=== PATIENT | male | born 1985 | race Caucasian/White ===

== ENCOUNTER 2024-06-14 17:49 | Emergency (ER) | payer OTHER ==
[~2024-06-14] VITALS: Ht 170.2 cm; Wt 93.0 kg
[2024-06-14 18:03] VITALS: BP 129/85; PULSE 95; RESP 15; TEMP 97.7; O2SAT 98
--- NOTE | 2024-06-14 18:08 | NUR ---
to bed 8.
[2024-06-14 18:13] VITALS: BP 126/74; PULSE 91; RESP 20; TEMP 98.2; O2SAT 100
--- NOTE | 2024-06-14 18:15 | NUR ---
39M CAME IN TO ED AMBULATORY. A/O X 4. VSS ON RA. CC: RASHES TO BILATERAL LOWER INNER LEGS X 1 WEEK. HAS BEEN APPLYING CORTISONE CREAM AND TAKING CLARITIN FOR THE PAST 3 DAYS WITH SOME RELIEF. DENIES BEING BITTEN BY INSECTS. NO CHANGE IN USUAL SOAP/DETERGENT/CLOTHING. DENIES FEVER, CHILLS. PMHX: GERD.
--- NOTE | 2024-06-14 18:16 | NUR ---
PA [facility] evaluating patient at bedside.
[2024-06-14] MEDS: predniSONE 20 MG TAB PO ONE (18:36)
[2024-06-14] MEDS ORDERED: HYDR28CR67 TP (18:50)
[2024-06-14] MEDS ORDERED: DIPH25TA53 PO (18:50)
[2024-06-14] MEDS ORDERED: METH4TAB1 PO (18:50)
--- NOTE | 2024-06-14 18:57 | NUR ---
Patient discharged with v/s stable. Written and verbal after care instructions given. Patient alert, oriented and verbalized understanding of instructions. Ambulatory with steady gait. All questions addressed prior to discharge. ID band removed. Patient advised to follow up with PMD. Rx of Bendadryl, Cortizone-10 and Medrol Dose [place] given. Opportunity to ask questions provided and answered.
--- NOTE | 2024-06-14 19:00 | NUR ---
Chart checked and completed. The patient's care was reviewed and supervised by SHANICE CHAO RN.
== END 2024-06-14 18:57 | disposition home or self-care (01) ==
LOC: MED 17:49
DX: L25.9 Unspecified contact dermatitis, unspecified cause (principal); R03.0 Elevated blood-pressure reading, without diagnosis of hypertension; Z79.899 Other long term (current) drug therapy
CPT/HCPCS: 99283; J7512